=== PATIENT | male | born 1985 | race Caucasian/White ===

== ENCOUNTER 2016-11-03 23:56 | Emergency (ER) | payer BC ==
[2016-11-04] MEDS ORDERED: HYDROmorphone 2 MG/1 ML ONE (00:11)
[2016-11-04] MEDS ORDERED: ONDANSETRON 4 MG/2 ML VIAL ONE (00:11)
[2016-11-04] MEDS ORDERED: ONDANSETRON 4 MG/2 ML VIAL IVP ONE (00:13)
[2016-11-04] MEDS ORDERED: NORMAL SALINE 10 ML SYRINGE FLUSH IVP PRN (00:13)
[2016-11-04] MEDS ORDERED: Sodium Chloride 0.9% 1,000 ML PRIMARY IV ONE (00:13)
[2016-11-04] MEDS ORDERED: Famotidine Inj 20 MG in Normal Saline Flush 10 ML IVP ONE (00:13)
[2016-11-04] MEDS ORDERED: HYDROmorphone 2 MG/1 ML IVP ONE ×2 (00:13→01:10)
[2016-11-04 00:21] LABS: HEMATOCRIT 42.8 % (42.0-52.0); HEMOGLOBIN 14.4 g/dL (14.0-18.0); MEAN CORPUSCULAR HEMOGLOBIN 29.9 PG (27-31); MEAN CORPUSCULAR HGB CONC 33.6 g/dL (33-37); MEAN PLATELET VOLUME 9.9 FL (7.4-12.2); RDW COEFFICIENT OF VARIATION 13.6 % (11.5-14.5); RED BLOOD COUNT 4.82 10^6/uL (4.70-6.10); WHITE BLOOD COUNT 12.59 10^3/uL (4.8-10.8)
[2016-11-04 00:33] LABS: AMYLASE 66 U/L (30-110); ASPARTATE AMINO TRANSFERASE 22 IU/L (21-57); BILIRUBIN,TOTAL 0.7 mg/dL (0.3-1.2); BLOOD UREA NITROGEN 13 mg/dL (7-22); BUN/CREATININE RATIO 18.57 (6-20); CALCIUM 9.4 mg/dL (8.7-10.7); CHLORIDE 105 meq/L (98-112); CREATININE 0.7 mg/dL (0.70-1.50); EST GLOMERULAR FILTRATION > 60 (>60 ml/min/1.73m(2)); GLUCOSE 86 mg/dL (78-110); POTASSIUM 4.4 meq/L (3.8-5.2); SODIUM 137 meq/L (135-145); TOTAL PROTEIN 7.3 g/dL (6.1-8.0)
[2016-11-04 00:40] LABS: BAND NEUTROPHILS % 0 % (0-10); LYMPHOCYTES % (MANUAL) 28 % (10-50); MONOCYTES % (MANUAL) 5 % (0-12); NEUTROPHILS % (MANUAL) 38 % (50-80); PLATELET MORPHOLOGY COMMENT NORMAL MORPHOLOGY (NORM)
[2016-11-04 00:41] LABS: BASOPHILS % (MANUAL) 0 % (0-1); EOSINOPHILS % (MANUAL) 29 % (0-8)
--- NOTE | 2016-11-04 01:18 | DI ---
HISTORY: Generalized abdominal pain with nausea. COMPARISON: None available. TECHNIQUE: Helical CT scanning was performed from the lung bases, through the abdomen and pelvis, to the level of lesser trochanters following the administration of IV contrast material. MPR. Overall image quality is satisfactory. FINDINGS: LUNG BASES/LOWER HEART: Basilar atelectasis. No focal basilar consolidation, pleural effusion or pneumothorax. No pericardial effusion. ABDOMEN/PELVIS: LIVER: Homogeneous parenchymal attenuation. GALLBLADDER: Distended with bile. No calcified gallstones noted. No adjacent inflammatory change. PANCREAS: No adjacent inflammatory change. ADRENAL GLANDS: Maintain their triangular shape. SPLEEN: Normal enhancement pattern. KIDNEYS: Anatomic location. No hydronephrosis. GREAT VESSELS: Enhance unremarkably. FREE INTRAPERITONEAL FLUID: No large volume. VARIABLY DISTENDED BOWEL LOOPS: Nonobstructive bowel gas pattern. Moderate to large volume formed c olonic stool is present. APPENDIX: Not visualized. No inflammatory change in the right lower quadrant is noted. OSSEOUS STRUCTURES: No acute osseous abnormality. IMPRESSION: 1. No acute intra-abdominal or pelvic inflammatory process. 2. Moderate to large volume formed colonic stool.
[2016-11-04 03:39] VITALS: TEMP 97.6
[2016-11-04 03:41] VITALS: RESP 16
--- NOTE | 2016-11-04 05:03 | PDOC ---
Abdomen/Flank HPI - General Chief Complaint: Abdomen Pain Stated Complaint: ABD Date Seen by Provider: 11/04/16 Time Seen by Provider: 00:04 Source: POSITIVE: Patient, Spouse Exam Limitations: POSITIVE: No limitations Nurse's Notes Reviewed & Considered: Yes - History of Present Illness Initial Comments: The patient is a 31-year-old male. He states that around 6 AM he began to have some upper abdominal discomfort which waxes and wanes. His discomfort became worse in the past 3 hours. He had one episode of vomiting. No diarrhea, melena , hematochezia, hematemesis, dysuria, hematuria or fevers. No history of previous abdominal surgery. He is on no medications and has no allergies. Body Location Affected: REPORTS: Abdomen Timing: REPORTS: Intermittent Duration: 4-6 hours Severity: Moderate Quality: REPORTS: "Pain" Abdominal Pain Onset Location: REPORTS: RUQ, Epigastric Abdominal Pain Radiation: REPORTS: No radiation Context: REPORTS: None Modifying Factors: improves with: Nothing, Vomiting (Vomited 1) Associated Symptoms: REPORTS: Denies symptoms, Nausea, Vomiting (Times one) Similar Symptoms Previously: No Recent Care Received: REPORTS: Denies Any Prior Injuries Related to Current Complaint?: No - Patient Home Medications Home Medications: Home Medications NK [No Home Medications Reported] 11/04/16 - Patient Allergies Allergies/Adverse Reactions: Allergies Allergy/AdvReac Type Severity Reaction Status Date / Time No Known Drug Allergies Allergy Intermediate NOT Verified 11/04/16 00:03 APPLICABLE Past Medical History - heen HEENT History: Denies History Cardiovascular History: Denies History Respiratory History: Denies History Gastrointestinal History: Denies History Genitourinary History: Denies History Endocrine History: Denies History Musculoskeletal History: Back Pain, Other (please comment) Prosthesis or Implant: No Additional Musculoskeletal History: Hx of left hand repair without hardware. Hx of left knee scope. Neurological History: Denies History Blood Disorders: Denies History Psychiatric History: Denies History Cancer History: Denies History In Past Year Been Physically Harmed or Verbally Threatened: No History of MDRO: No Tobacco Use: Never Smoker Alcohol Use: Occasionally Substance Use Type: None Previous Surgical History: Yes Type / Date of Surgery: SCOPE LEFT KNEE. TENDON REPAIR LEFT THUMB Anesthesia Reactions: No Significant Family History: No pertinent family hx Past Medical History Reviewed: Reviewed - No Changes ROS - Limitations ROS Limitations: No Limitations Constitution: REPORTS: Denies Symptoms Cardiovascular: REPORTS: Denies Cardiac Symptoms Respiratory: REPORTS: Denies Resp Symptoms Neurological: REPORTS: Denies Neuro Symptoms Gastrointestinal: REPORTS: Abdominal Pain, Nausea, Vomitting (I) Endocrine: REPORTS: Denies Symptoms Musculoskeletal: REPORTS: Denies MS Symptoms Genitourinary: REPORTS: Denies Symptoms Eyes: REPORTS: Denies Symptoms ENT: REPORTS: Denies Symptoms Skin: REPORTS: Denies Skin Symptoms Lympathic: REPORTS: Denies Lympathic Symptoms Immunologic: POSITIVE: Denies Symptoms Psychiatric: POSITIVE: Denies Psych Symptoms Abdominal/Flank Pain PE - General Appearance General Appearance: POSITIVE: Alert, Cooperative, No Acute Distress, No Evidence of Trauma - HEENT HEENT: POSITIVE: Head Inspection Nml, Eyes Inspection Nml, Ears Inspection Nml, Nose Inspection Nml, Oral/Dental Inspect. Nml, Pharynx Inspect. Nml, PERRL, EOMI - Neck Neck: POSITIVE: Normal Inspection, No Apparent Injury - Respiratory Respiratory: POSITIVE: No Respiratory Distress, Breath Sounds Normal, Chest Non- Tender - Cardiovascular Cardiovascular: POSITIVE: Regular Rate and Rhythm, Heart Sounds Normal, Equal Pulses, Strong Pulses Peripheral Pulses: Radial (R): 2+, Radial (L): 2+ - Chest Chest: POSITIVE: Non Tender - Abdomen Abdomen: Soft: (All Quadrants), Normal Bowel Sounds: (All Quadrants), Denies Tenderness: (LLQ), (LUQ), (RLQ), No Splenomegaly: (All Quadrants), No Hepatomegaly: (All Quadrants), No Guarding: (All Quadrants), No Rebound: (All Quadrants), No Palpable Pulse: (All Quadrants), No Palpabale Mass: (All Quadrants), No Distention: (All Quadrants), No Rigidity: (All Quadrants), Tenderness Noted: (RUQ) Additional Abdominal Details: Abdominal examination shows bowel sounds to be active. Patient describes discomfort in the epigastrium and right upper quadrant, however direct palpation of this area does not really increase intensity of discomfort. - Back Back: POSITIVE: Normal Inspection. NEGATIVE: CVA Tenderness (R), CVA Tenderness (L) - Skin Skin: POSITIVE: Intact, Normal For Race, Warm, Dry, No Rash - Extremities Extremity: Non-Tender: (All Extremities), Normal ROM: (All Extremities), Normal Inspection: (All Extremities) - Neurological Neurological: POSITIVE: Oriented X3, bunch breaker Normal As Tested, Motor Normal, Sensation Normal, 5, 6 - Psychological Psychiatric: POSITIVE: Affect Appropriate, Mood Appropriate Images - Complete Complete: 1 - Area of described discomfort Abdomen Progress - Results Reviewed by me Xrays/CTs/US Reviewed by me: Yes Discussed with Radiologist: Yes Radiology Findings: CT scan abdomen and pelvis with IV contrast is read as normal by radiologist except for moderate to large amount of formed stool. Gallbladder is reportedly distended but there are no radiographic evidence of stones. Lab Results Reviewed: Yes Lab Results:: Laboratory Results 11/04/16 Range/Units 00:18 WBC 12.59 H (4.8-10.8) 10^3/uL RBC 4.82 (4.70-6.10) 10^6/uL Hgb 14.4 (14.0-18.0) g/dL Hct 42.8 (42.0-52.0) % MCV 88.8 (80-90) FL MCH 29.9 (27-31) PG MCHC 33.6 (33-37) g/dL RDW Std Deviation 43.6 (39-50) fL RDW Coeff of Laura 13.6 (11.5-14.5) % Plt Count 251 (140-350) 10*3/uL MPV 9.9 (7.4-12.2) FL Neutrophils % (Manual) 38 L (50-80) % Band Neutrophils % 0 (0-10) % Lymphocytes % (Manual) 28 (10-50) % Monocytes % (Manual) 5 (0-12) % Eosinophils % (Manual) 29 H (0-8) % Basophils % (Manual) 0 (0-1) % Metamyelocytes % Not Reportable Myelocytes % Not Reportable Promyelocytes % Not Reportable Blast Cells Not Reportable WBC Morphology Comment See comments (NORM) Plt Morphology Comment Normal morphology (NORM) RBC Morph Comment Normal morphology (NORM) Sodium 137 (135-145) meq/L Potassium 4.4 (3.8-5.2) meq/L Chloride 105 (98-112) meq/L Carbon Dioxide 22 L (23-33) meq/L Anion Gap 10 (5-20) BUN 13 (7-22) mg/dL Creatinine 0.7 (0.70-1.50) mg/dL Estimated GFR > 60 (>60 ml/min/1.73m(2)) BUN/Creatinine Ratio 18.57 (6-20) Glucose 86 (78-110) mg/dL Calculated Osmolality 282.0 (267-292) mOsm/kg Calcium 9.4 (8.7-10.7) mg/dL Total Bilirubin 0.7 (0.3-1.2) mg/dL AST 22 (21-57) IU/L ALT 30 (21-72) IU/L Alkaline Phosphatase 64 (38-126) IU/L Total Protein 7.3 (6.1-8.0) g/dL Albumin 4.3 (3.5-4.8) g/dL Globulin 2.9 (2.50-4.10) g/dL Albumin/Globulin Ratio 1.40 (1.3-2.0) mg/g Amylase 66 (30-110) U/L Lipase 101 (23-300) IU/L - Patient's Progress Pain Medication Addressed: POSITIVE: Yes (Dilaudid, total of 4 mg in ER) School/Work Release Addressed: POSITIVE: Yes Re-examine Time: 01:45 Re-Examine Comment: Pain essentially resolved and patient feels much better. Abdominal examination shows no pain on palpation and bowel sounds are active. Status: POSITIVE: Improved, Re-Examined - Consult Counseled: POSITIVE: Patient, Family, RE: Lab Results, RE: Radiology Results, RE : DX, RE: Need for F/U Patient Care Time - Estimated PCT Patient Care Time (In Minutes): 45 Vital Signs - Recent Vital Signs Vital Signs: Vital Signs (Last 8 hours) Temp Pulse Pulse Resp BP BP Pulse Ox 11/04/16 02:46 59 L 16 122/76 93 11/04/16 01:30 97.6 F 95 22 133/65 95 11/03/16 23:56 97.6 F 70 20 133/95 97 - VS Reviewed Vital Signs Reviewed: Yes Discharge Clinical Impression: Abdominal pain Discharge Disposition: Discharged to Home Condition: Good Patient Instructions Given at Discharge: Acute Abdominal Pain (ED) Additional Instructions: Your laboratory tests were normal. CT scan of your abdomen and pelvis was normal except for a moderate to large amount of formed stool in the colon. There is no signs of any appendicitis, gallstones, kidney stones, bowel perforations or any other serious intra-abdominal processes. I believe you're most likely had some intestinal colic, which is a painful condition in which the intestine contracts around some air in the bowel. I think this is resolved. I'm glad you are feeling better and back to normal. Please observe a clear liquid diet for 24-48 hours. Zantac [id number]. Return any time if symptoms recur or if condition worsens in any way. Otherwise, please follow- up with your primary care provider. Follow Up With: NONE,NONE [Primary Care Provider] - (Instructions as above. Return anytime if condition worsens. Follow-up with your primary care provider.)
== END 2016-11-04 02:46 | disposition home or self-care (01) ==
LOC: ER 23:56
DX: R10.13 Epigastric pain (principal); R11.2 Nausea with vomiting, unspecified; R10.11 Right upper quadrant pain
CPT/HCPCS: 74177; 80053; 82150; 83690; 85007; 96361; 96374; 96375; 96376; 99283; J1170; J2405

== ENCOUNTER 2016-11-04 04:04 | Observation (INO) | payer BC ==
[2016-11-04] MEDS ORDERED: Sodium Chloride 0.9% 1,000 ML PRIMARY IV ONE (04:26)
[2016-11-04] MEDS ORDERED: NORMAL SALINE 10 ML SYRINGE FLUSH IVP PRN ×2 (04:26→07:15)
[2016-11-04] MEDS ORDERED: HYDROmorphone 2 MG/1 ML IVP ONE (04:26)
[2016-11-04] MEDS ORDERED: ONDANSETRON 4 MG/2 ML VIAL IVP ONE (04:26)
[2016-11-04 05:51] LABS: BASOPHILS # (AUTO) 0.12 10*3/UL; BASOPHILS % (AUTO) 0.9 % (0-1); EOSINOPHILS # (AUTO) 4.08 10*3/UL; HEMATOCRIT 40.6 % (42.0-52.0); HEMOGLOBIN 13.6 g/dL (14.0-18.0); LYMPHOCYTES # (AUTO) 3.28 10*3/uL; MEAN CORPUSCULAR HEMOGLOBIN 29.9 PG (27-31); MEAN CORPUSCULAR HGB CONC 33.5 g/dL (33-37); MEAN PLATELET VOLUME 9.8 FL (7.4-12.2); MONOCYTES # (AUTO) 0.84 10*3/UL (0.3-0.8); MONOCYTES % (AUTO) 6.6 % (5-15); NEUTROPHILS # (AUTO) 4.41 10*3/UL; NEUTROPHILS % (AUTO) 34.6 % (50-80); RED BLOOD COUNT 4.55 10^6/uL (4.70-6.10)
[2016-11-04 05:52] LABS: BILIRUBIN,URINE NEGATIVE (NEG); CLARITY,URINE CLEAR (CLEAR); COLOR,URINE YELLOW; GLUCOSE, URINE (UA) NEGATIVE (NEG); NITRATE,URINE NEGATIVE (NEG); OCCULT BLOOD,URINE NEGATIVE (NEG); PH,URINE 6.5 (5.0-8.5); PROTEIN,URINE NEGATIVE (NEG); UROBILINOGEN,URINE 0.2 EU/dL (0.2)
[2016-11-04 05:53] LABS: URINE SAMPLE TYPE CLEAN CATCH URINE
[2016-11-04 06:02] LABS: BLOOD UREA NITROGEN 11 mg/dL (7-22); BUN/CREATININE RATIO 15.71 (6-20); CALCIUM 8.8 mg/dL (8.7-10.7); EST GLOMERULAR FILTRATION > 60 (>60 ml/min/1.73m(2)); LIPASE 120 IU/L (23-300); SERUM ALBUMIN 4.1 g/dL (3.5-4.8)
[2016-11-04 06:05] LABS: PLATELET MORPHOLOGY COMMENT NORMAL MORPHOLOGY (NORM); RBC MORPHOLOGY COMMENT NORMAL MORPHOLOGY (NORM); WBC MORPHOLOGY COMMENT SEE COMMENTS (NORM)
--- NOTE | 2016-11-04 06:46 | PDOC ---
Abdomen/Flank HPI - General Chief Complaint: Abdomen Pain Stated Complaint: ABD PAIN Date Seen by Provider: 11/04/16 Time Seen by Provider: 04:15 Source: POSITIVE: Patient, Spouse Exam Limitations: POSITIVE: No limitations Nurse's Notes Reviewed & Considered: Yes - History of Present Illness Initial Comments: The patient is a 31-year-old male who presents to the emergency room with chief complaint of upper abdominal pain. Patient was seen in the emergency room earlier this morning, at approximately midnight with similar complaints. Evaluation at that time included CT scan of the abdomen and pelvis which was read by the radiologist as normal. CBC at that time showed a mildly elevated white blood cell count of 12,300. CMP, amylase and lipase were all normal. Patient was medicated with Dilaudid 2 on that visit any seemed to improve considerably. He is was essentially pain-free when he left the emergency room at approximately 1:50 AM. Patient returns now at 4:15 AM with a recurrence of his pain. He rates the intensity of his pain is about a 9 on a scale of 10. He did vomit one time earlier today. No diarrhea. No melena, hematochezia, hematemesis, dysuria or hematuria. No known fevers. Body Location Affected: REPORTS: Abdomen Timing: REPORTS: Intermittent, Getting Worse Duration: <24 hours (Onset of abdominal discomfort around 6 AM yesterday, 22 hours ago.) Severity: Severe Quality: REPORTS: "Pain", Other (Waxing and waning) Abdominal Pain Onset Location: REPORTS: RUQ, Epigastric Abdominal Pain Radiation: REPORTS: No radiation Context: REPORTS: None Modifying Factors: improves with: Vomiting (Emesis 1) Associated Symptoms: REPORTS: Vomiting (Times one) Similar Symptoms Previously: Yes (seen in ER around midnight with similar complaints; see above) Recent Care Received: REPORTS: Recently Seen, Treated by MD Any Prior Injuries Related to Current Complaint?: No - Patient Home Medications Home Medications: Home Medications NK [No Home Medications Reported] 11/04/16 - Patient Allergies Allergies/Adverse Reactions: Allergies Allergy/AdvReac Type Severity Reaction Status Date / Time No Known Drug Allergies Allergy Intermediate NOT Verified 11/04/16 04:06 APPLICABLE Past Medical History - heen HEENT History: Denies History Cardiovascular History: Denies History Respiratory History: Denies History Gastrointestinal History: Denies History Genitourinary History: Denies History Endocrine History: Denies History Musculoskeletal History: Back Pain, Other (please comment) Prosthesis or Implant: No Additional Musculoskeletal History: Hx of left hand repair without hardware. Hx of left knee scope. Neurological History: Denies History Blood Disorders: Denies History Psychiatric History: Denies History Cancer History: Denies History In Past Year Been Physically Harmed or Verbally Threatened: No History of MDRO: No Tobacco Use: Never Smoker Alcohol Use: Occasionally Substance Use Type: None Previous Surgical History: Yes Type / Date of Surgery: SCOPE LEFT KNEE. TENDON REPAIR LEFT THUMB Anesthesia Reactions: No Significant Family History: No pertinent family hx Past Medical History Reviewed: Reviewed - No Changes ROS - Limitations ROS Limitations: No Limitations Constitution: REPORTS: Denies Symptoms Cardiovascular: REPORTS: Denies Cardiac Symptoms Respiratory: REPORTS: Denies Resp Symptoms Neurological: REPORTS: Denies Neuro Symptoms Gastrointestinal: REPORTS: Abdominal Pain, Vomitting (Times one) Endocrine: REPORTS: Denies Symptoms Musculoskeletal: REPORTS: Denies MS Symptoms Genitourinary: REPORTS: Denies Symptoms Eyes: REPORTS: Denies Symptoms ENT: REPORTS: Denies Symptoms Skin: REPORTS: Denies Skin Symptoms Lympathic: REPORTS: Denies Lympathic Symptoms Immunologic: POSITIVE: Denies Symptoms Psychiatric: POSITIVE: Denies Psych Symptoms Abdominal/Flank Pain PE - General Appearance General Appearance: POSITIVE: Alert, Cooperative, No Acute Distress, No Evidence of Trauma - HEENT HEENT: POSITIVE: Head Inspection Nml, Eyes Inspection Nml, Ears Inspection Nml, Nose Inspection Nml, Oral/Dental Inspect. Nml, Pharynx Inspect. Nml, PERRL, EOMI - Neck Neck: POSITIVE: Normal Inspection, No Apparent Injury - Respiratory Respiratory: POSITIVE: No Respiratory Distress, Breath Sounds Normal, Chest Non- Tender - Cardiovascular Cardiovascular: POSITIVE: Regular Rate and Rhythm, Heart Sounds Normal, Equal Pulses, Strong Pulses Peripheral Pulses: Radial (R): 2+, Radial (L): 2+ - Chest Chest: POSITIVE: Non Tender - Abdomen Abdomen: Soft: (All Quadrants), Normal Bowel Sounds: (All Quadrants), Denies Tenderness: (LLQ), (RLQ), No Splenomegaly: (All Quadrants), No Hepatomegaly: ( All Quadrants), No Guarding: (All Quadrants), No Rebound: (All Quadrants), No Palpable Pulse: (All Quadrants), No Palpabale Mass: (All Quadrants), No Distention: (All Quadrants), No Rigidity: (All Quadrants), Tenderness Noted: ( RUQ), (LUQ) Additional Abdominal Details: Abdominal examination shows bowel sounds to be present. Patient complains of pain on direct palpation over the upper abdomen, especially the epigastrium. No masses or organomegaly or rebound. - Back Back: POSITIVE: Normal Inspection - Skin Skin: POSITIVE: Intact, Normal For Race, Warm, Dry, No Rash - Extremities Extremity: Non-Tender: (All Extremities), Normal ROM: (All Extremities), Normal Inspection: (All Extremities) - Neurological Neurological: POSITIVE: Oriented X3, online services manager Normal As Tested, Motor Normal, Sensation Normal, 5, 6 - Psychological Psychiatric: POSITIVE: Affect Appropriate, Mood Appropriate Images - Complete Complete: 1 - Area of pain Abdomen Progress - Results Reviewed by me Xrays/CTs/US Reviewed by me: Yes Radiology Findings: Ultrasound of abdomen read as normal by licensed master social worker with no evidence of gallstones; radiologist reading pending Lab Results Reviewed: Yes (White blood cell count up to 12,740) Lab Results:: Laboratory Results 11/04/16 11/04/16 Range/Units 05:47 05:49 WBC 12.76 H (4.8-10.8) 10^3/uL RBC 4.55 L (4.70-6.10) 10^6/uL Hgb 13.6 L (14.0-18.0) g/dL Hct 40.6 L (42.0-52.0) % MCV 89.2 (80-90) FL MCH 29.9 (27-31) PG MCHC 33.5 (33-37) g/dL RDW Std Deviation 43.6 (39-50) fL RDW Coeff of Laura 13.7 (11.5-14.5) % Plt Count 250 (140-350) 10*3/uL MPV 9.8 (7.4-12.2) FL Immature Gran % (Auto) 0.2 (0-5) % Neut % (Auto) 34.6 L (50-80) % Lymph % (Auto) 25.7 (10-50) % [place]oshone % (Auto) 6.6 (5-15) % Eos % (Auto) 32.0 H (0-8) % Baso % (Auto) 0.9 (0-1) % Immature Gran # (Auto) 0.03 10*3/UL Neut # (Auto) 4.41 10*3/UL Lymph # (Auto) 3.28 10*3/uL [place] # (Auto) 0.84 H (0.3-0.8) 10*3/UL Eos # (Auto) 4.08 10*3/UL Baso # (Auto) 0.12 10*3/UL WBC Morphology Comment See comments (NORM) Plt Morphology Comment Normal morphology (NORM) RBC Morph Comment Normal morphology (NORM) Sodium 138 (135-145) meq/L Potassium 4.4 (3.8-5.2) meq/L Chloride 106 (98-112) meq/L Carbon Dioxide 23 (23-33) meq/L Anion Gap 9 (5-20) BUN 11 (7-22) mg/dL Creatinine 0.7 (0.70-1.50) mg/dL Estimated GFR > 60 (>60 ml/min/1.73m(2)) BUN/Creatinine Ratio 15.71 (6-20) Glucose 88 (78-110) mg/dL Calculated Osmolality 283.0 (267-292) mOsm/kg Calcium 8.8 (8.7-10.7) mg/dL Total Bilirubin 0.8 (0.3-1.2) mg/dL AST 21 (21-57) IU/L ALT 26 (21-72) IU/L Alkaline Phosphatase 54 (38-126) IU/L Total Protein 6.8 (6.1-8.0) g/dL Albumin 4.1 (3.5-4.8) g/dL Globulin 2.7 (2.50-4.10) g/dL Albumin/Globulin Ratio 1.50 (1.3-2.0) mg/g Amylase 60 (30-110) U/L Lipase 120 (23-300) IU/L Ur Collection Type Clean catch urine Urine Color Yellow Urine Clarity Clear (CLEAR) Urine pH 6.5 (5.0-8.5) Ur Specific Roy 1.015 (1.005-1.030) Urine Protein Negative (NEG) mg/dl Urine Glucose (UA) Negative (NEG) mg/dL Urine Ketones Negative (NEG) Urine Occult Blood Negative (NEG) Urine Nitrate Negative (NEG) Urine Bilirubin Negative (NEG) Urine Urobilinogen 0.2 (0.2) EU/dL Ur Leukocyte Esterase Negative (NEG) Ur Culture Indicated? Culture not set - Patient's Progress Pain Medication Addressed: POSITIVE: Yes (Patient given Dilaudid, 2 mg IV with considerable relief of pain) School/Work Release Addressed: POSITIVE: Not Applicable Re-examine Time: 06:30 Re-Examine Comment: Pain less after analgesia Status: POSITIVE: Improved, Re-Examined - Consult Consult (If Yes, Name of Consulting MD & Time Called): Yes (Dr. Begum, surgeon [id number]; Dr. Charles, hospitalist,[id number]) Consulting MD will see pt:: POSITIVE: [facility] [place] Admit Counseled: POSITIVE: Patient, Family, RE: Lab Results, RE: Radiology Results, RE : DX Patient Care Time - Estimated PCT Patient Care Time (In Minutes): 45 Vital Signs - Recent Vital Signs Vital Signs: Vital Signs (Last 8 hours) Temp Pulse Resp BP Pulse Ox 11/04/16 04:04 98.0 F 67 18 148/88 95 - VS Reviewed Vital Signs Reviewed: Yes Discharge Clinical Impression: Abdominal pain Discharge Disposition: Admit to Inpatient Condition: Stable Date Decision to Admit to Inpatient: 11/04/16 Time Decision to Admit to Inpatient: 06:00
[2016-11-04] MEDS ORDERED: Belladon/PHENobarbital Elixir 10 ML, Lidocaine Viscous Liquid 2% 15 ML, Mag Hyd/Al Hyd/... PO ONE ×3 (06:52)
[2016-11-04] MEDS ORDERED: MAGNESIUM 400 MG/5 ML - 30 ML (MILK OF MAGNESIA) PO ONE (07:15)
[2016-11-04] MEDS ORDERED: Sodium Chloride 0.9% 1,000 ML PRIMARY IV SCH (07:15)
[2016-11-04] MEDS ORDERED: LIDOCAINE W/ SODIUM BICARB 0.5 ML SYR SUBD PRN (07:15)
[2016-11-04] MEDS ORDERED: Fleet Enema w/Mineral Oil 133ml RECTAL ONE (07:15)
[2016-11-04] MEDS ORDERED: ONDANSETRON 4 MG/2 ML VIAL IVP PRN (07:15)
[2016-11-04] MEDS: KETOROLAC 15 MG/1 ML VIAL IVP PRN ×2 (07:43→14:14)
[2016-11-04] MEDS: ACETAMINOPHEN 325 MG TABLET PO PRN ×2 (07:44→14:14)
--- NOTE | 2016-11-04 07:53 | DI ---
HISTORY: Abdominal pain. COMPARISON: CT abdomen and pelvis earlier today (11/04/2016). TECHNIQUE: Multiple grayscale and color Doppler sonographic images were obtained through the abdomen without contrast. FINDINGS: The aorta is unremarkable. The liver is also unremarkable. The pancreas is normal throughout its visualized portions. The gall bladder is normal. The common bile duct is normal. The right kidney is also normal. The spleen and left kidney are normal. IMPRESSION: 1. Normal ultrasound of the abdomen. NOTE: The interpreting Radiologist was not present at the time of ultrasound interrogation.
[2016-11-04] MEDS ORDERED: POLYETHYLENE GLYCOL 3350 17 GM POWDER PO SCH (09:00)
[2016-11-04] MEDS ORDERED: Pantoprazole Inj 40 MG in Normal Saline Flush 10 ML IVP SCH (09:00)
--- NOTE | 2016-11-04 11:19 | DI ---
CT ABDOMEN SCAN WITHOUT IV CONTRAST, 11/04/2016 7:57 AM : Clinical History: Abdominal pain. Previous Exam: 11/03/2016. Scans are performed from the lower lung bases through the liver and kidneys without IV contrast. Sagi ttal and coronal reformatted images are generated. The lung bases are clear. The liver is normal. The gallbladder is opacified from the CT contrast admi nistered the night before. No filling defects are visualized within the gallbladder. There is no abno rmality of the spleen, pancreas, and adrenal glands. Both kidneys are normal in size, shape, position and contour. Residual contrast is present in the calyces of both kidneys from the scans performed th e night before. There is no hydronephrosis or hydroureter. No renal or ureteral calculi are present. There are no abnormal retrocrural or periaortic nodes. No ascites is present. READING: Normal CT abdomen scan. The gallbladder and kidneys to have residual contrast from the CT scans of th e abdomen and pelvis performed with IV contrast at 2342 hours on 11/03/2016. CT PELVIS SCAN WITHOUT IV CONTRAST, 11/04/2016 7:57 AM : Clinical History: See above. Previous Exam: 11/03/2016. Scans are performed from the inferior margin of the liver and kidneys to the symphysis pubis without IV contrast. There is no free fluid collection and there is no adenopathy. The appendix is normal. It was present on the previous exam as well and has not changed. The small bowel, terminal ileum, and ileocecal valv e are normal. The colon is also normal. There are no hernias. READING: Normal CT pelvis scan. The appendix is normal.
--- NOTE | 2016-11-04 12:23 | PDOC ---
History and Physical - History of Present Illness Date and Time of Service: 11/04/2016, 1220 Chief Complaint: Abdominal pain History of Present Illness: This very pleasant 31-year-old male with no prior past medical history who is accompanied by his mother here this morning. He has had a history of abdominal pain and that was his complaint when he presented today. His story starts about a week ago when he had some fairly severe diarrhea, and since that time he 's had sharp to dull intermittent abdominal pain mostly located in the epigastric and right upper quadrant region. He presented to the emergency room last night and also apparently had coffee-ground emesis. He's never had any symptoms like these before. He denies fever, continued vomiting, or diarrhea at this time. No fevers or chills. He states to me that Dilaudid seemed to help his pain but it made him feel very bad overall. I read the initial CT scan report and it stated that the appendix was not visualized and that the patient had moderate constipation. The over read reports are different than the initial CT scan report. I also ordered a rectal contrast CT scan study which was negative for appendicitis. An ultrasound of the gallbladder was negative. The patient denies any heartburn symptoms. He is ambulatory and walking with this pain, this had a couple of bowel movements and his pain is been subsiding to some degree although not completely relieved. He does state that the pain gets worse sometimes with food although it's fairly inconsistent, but his history was very consistent with pain coming and going. Past Medical History Medical History: None Surgical History: 1. Hand surgery. 2. Knee surgery Pertinent Family History: Significant for thyroid disease. He had a brother with a blood clot. Past Social History: Does not smoke or drink. . Has 4 children. 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 Tobacco Use: Never Smoker Substance Use Type: None Alcohol Use: None Medication / Allergies Home Medications: Home Medications Medication Instructions Recorded Confirmed Type NK [No Home Medications Reported] 11/04/16 11/04/16 History Allergies/Adverse Reactions: Allergies Allergy/AdvReac Type Severity Reaction Status Date / Time No Known Drug Allergies Allergy Intermediate NOT Verified 11/04/16 07:15 APPLICABLE Review of Systems - Review of Systems All Systems: Reviewed & No Additional Complaints Except as Stated (I did a 12 point review systems and it was negative other than that discussed in the history of present illness and that noted below.) - Gastrointestinal Gastrointestinal / Abdominal: REPORTS: Vomiting (Described as intermittent, with one episode yesterday.), Abdominal Pain Exam - Vitals Vital Signs: Vital Signs Temperature 97.3 F Temperature Source Oral Pulse Rate [Pulse Oximeter] 74 Pulse Rate 64 Respiratory Rate 16 Blood Pressure [Left Arm] 143/84 Blood Pressure 128/60 Pulse Ox 99 Oxygen Delivery Method Room Air Height 12 ft 7.6 in Weight 151 lb 9.6 oz - General General Appearance: POSITIVE: No Acute Distress, Cooperative - Head Head Exam: POSITIVE: Normal Inspection, Normocephalic, Atraumatic - Eye Eye Exam: POSITIVE: No Scleral Icterus - ENT ENT Exam: POSITIVE: Mucous Membranes Moist - Neck Neck Exam: POSITIVE: Normal Inspection, No Tenderness, No Thyromegaly - Respiratory Respiratory Exam: POSITIVE: Clear to Auscultation - Bilaterally, Breathing Non Labored, Normal to Percussion and Palpation - Cardiovascular Cardiovascular Exam: POSITIVE: RRR, No Murmur, No Clicks, No Gallops, No Rubs, PMI Non-Displaced, No JVD - GI/Abdominal GI/Abdominal Exam: POSITIVE: Normal Bowel Sounds, Non Tender, Non Distended, Soft Additional GI/Abdominal Exam Details: I could not elicit any tenderness with palpation on the abdomen. - Rectal Rectal Exam: POSITIVE: Deferred - External Exam: POSITIVE: Deferred Exam: POSITIVE: Deferred - Extremities Extremities Exam: POSITIVE: No Clubbing Present, No Edema Present, No Cyanosis Present - Back Back Exam: POSITIVE: No CVA Tenderness - Neurological Neurological Exam: POSITIVE: Alert, Oriented x 3, Normal Gait, No Facial Droop, Speech Intact / Clear, Moves All Extremities Equally - Psychiatric Psychiatric Exam: POSITIVE: Normal Affect, Normal Mood - Central Line Examination Central Line Present on Admission: No Results - Labs CBC and BMP: 11/04/16 05:49 11/04/16 05:49 Labs - Last 24 Hours: Laboratory Results 11/04/16 11/04/16 Range/Units 05:47 05:49 WBC 12.76 H (4.8-10.8) 10^3/uL RBC 4.55 L (4.70-6.10) 10^6/uL Hgb 13.6 L (14.0-18.0) g/dL Hct 40.6 L (42.0-52.0) % MCV 89.2 (80-90) FL MCH 29.9 (27-31) PG MCHC 33.5 (33-37) g/dL RDW Std Deviation 43.6 (39-50) fL RDW Coeff of Laura 13.7 (11.5-14.5) % Plt Count 250 (140-350) 10*3/uL MPV 9.8 (7.4-12.2) FL Immature Gran % (Auto) 0.2 (0-5) % Neut % (Auto) 34.6 L (50-80) % Lymph % (Auto) 25.7 (10-50) % Wolfe % (Auto) 6.6 (5-15) % Eos % (Auto) 32.0 H (0-8) % Baso % (Auto) 0.9 (0-1) % Immature Gran # (Auto) 0.03 10*3/UL Neut # (Auto) 4.41 10*3/UL Lymph # (Auto) 3.28 10*3/uL Wolfe # (Auto) 0.84 H (0.3-0.8) 10*3/UL Eos # (Auto) 4.08 10*3/UL Baso # (Auto) 0.12 10*3/UL WBC Morphology Comment See comments (NORM) Plt Morphology Comment Normal morphology (NORM) RBC Morph Comment Normal morphology (NORM) Sodium 138 (135-145) meq/L Potassium 4.4 (3.8-5.2) meq/L Chloride 106 (98-112) meq/L Carbon Dioxide 23 (23-33) meq/L Anion Gap 9 (5-20) BUN 11 (7-22) mg/dL Creatinine 0.7 (0.70-1.50) mg/dL Estimated GFR > 60 (>60 ml/min/1.73m(2)) BUN/Creatinine Ratio 15.71 (6-20) Glucose 88 (78-110) mg/dL Calculated Osmolality 283.0 (267-292) mOsm/kg Calcium 8.8 (8.7-10.7) mg/dL Total Bilirubin 0.8 (0.3-1.2) mg/dL AST 21 (21-57) IU/L ALT 26 (21-72) IU/L Alkaline Phosphatase 54 (38-126) IU/L Total Protein 6.8 (6.1-8.0) g/dL Albumin 4.1 (3.5-4.8) g/dL Globulin 2.7 (2.50-4.10) g/dL Albumin/Globulin Ratio 1.50 (1.3-2.0) mg/g Amylase 60 (30-110) U/L Lipase 120 (23-300) IU/L Ur Collection Type Clean catch urine Urine Color Yellow Urine Clarity Clear (CLEAR) Urine pH 6.5 (5.0-8.5) Ur Specific [place] 1.015 (1.005-1.030) Urine Protein Negative (NEG) mg/dl Urine Glucose (UA) Negative (NEG) mg/dL Urine Ketones Negative (NEG) Urine Occult Blood Negative (NEG) Urine Nitrate Negative (NEG) Urine Bilirubin Negative (NEG) Urine Urobilinogen 0.2 (0.2) EU/dL Ur Leukocyte Esterase Negative (NEG) Ur Culture Indicated? Culture not set - Imaging Status: Report Reviewed by Me (CT scans of the abdomen and pelvis are negative for appendicitis, pancreatitis, or other acute pathologies. Ultrasound of the gallbladder is negative.) Assessment and Plan - Patient Problems (1) Abdominal pain Current Visit: Yes Status: Acute - Assessment / Plan Additional Assessment/Plan Details: Admit patient for observation. IV fluids. Protonix IV. Could certainly be a gastritis/ulcer, but no red flag symptoms of needing a scope in an emergency basis. He is not actively exsanguinating. Continue proton pump inhibitor and possibly start H2 esha. Patient's pain description was of a somewhat colicky nature, which could be suggestive of biliary dyskinesia. Get a HIDA scan, which I probably will not be able to get in until tomorrow morning in discussion with nuclear medicine. We will have surgery consult on the patient as well and I discussed with Dr. Begum. Question need for EGD.
[2016-11-04 12:28] VITALS: TEMP 97.6
[2016-11-04] MEDS ORDERED: Lactated Ringers 1,000 ML PRIMARY IV ONE (14:41)
--- NOTE | 2016-11-04 14:56 | CONSULT ---
Consult Note - Consult Consult Date: 11/04/16 Reason for Consult: PreOp Consulation : General Surgery Requesting Physician: Dr. Araceli Pool Primary Care Provider: NONE NONE - History of Present Illness History of Present Illness: Patient is a 31-year-old male who reports problem started about a week ago. He had a bout of severe diarrhea. He has had normal bowel movements since then. He reports 2-3 a day. He has had some nagging abdominal pain since the diarrhea. Yesterday morning he got up and ate something. He had increased pain. He doesn't remember what he ate. He apparently went to work. He ate some pizza at lunch time and developed progressive and severe epigastric abdominal pain. He had nausea. He had self-induced vomiting which he describes as coffee ground. The pain is in the epigastrium and is described as burning to sharp. He does not have heartburn. It seems to be worse with food. He is not taking any aspirin or anti-inflammatories. He has never had a pain like this before. Patient presented to the emergency room last evening. Workup was labs and a CT scan of his abdomen and pelvis. He got some Dilaudid in the pain largely resolved. CT scan showed some constipation and he was started on some liquid Colace. Labs were remarkable only for mild elevation of his white count 12, 300. He was sent home. The pain recurred and he presented back to the emergency room. Comprehensive lab work was again unremarkable with the exception of a slight elevation of his white count at 12,700. Ultrasound of his abdomen was done and was unremarkable. He was admitted to the hospitalist service. CT was done with rectal contrast today and was normal including his appendix which was not visualized on the first CT. He had a large bowel movement after the rectal contrast. He reports that right after the CAT scan his pain was at its worst. He is much more comfortable now. He has not had any pain medicine since early this morning. I am asked to see him in consultation. Review of Systems - Gastrointestinal Gastrointestinal / Abdominal: REPORTS: Nausea, Vomiting, Diarrhea, Abdominal Pain, See HPI Past Medical History Medical History: None Surgical History: 1. Left thumb surgery. 2. Left knee surgery Pertinent Family History: Significant for thyroid disease. He had a brother with a blood clot. Past Social History: Does not smoke or drink. . Has 4 children. 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 Tobacco Use: Never Smoker Do you dip or chew tobacco: Yes (1 can a week.) Substance Use Type: None Alcohol Use: Occasionally (1-2 beers 3-5 days a week.) Medication / Allergies Home Medications: Home Medications Medication Instructions Recorded Confirmed Type NK [No Home Medications Reported] 11/04/16 11/04/16 History Allergies/Adverse Reactions: Allergies Allergy/AdvReac Type Severity Reaction Status Date / Time No Known Drug Allergies Allergy Intermediate NOT Verified 11/04/16 07:15 APPLICABLE Exam - Vitals Vital Signs: Vital Signs Temperature 97.6 F Temperature Source Temporal Artery Scan Pulse Rate [Pulse Oximeter] 53 Pulse Rate 64 Respiratory Rate 16 Blood Pressure [Left Arm] 114/72 Blood Pressure 128/60 Pulse Ox 97 Oxygen Delivery Method Room Air Height 12 ft 7.6 in Weight 68.765 kg - General General Appearance: POSITIVE: No Acute Distress, Cooperative - Respiratory Respiratory Exam: POSITIVE: Clear to Auscultation - Bilaterally, Breathing Non Labored - Cardiovascular Cardiovascular Exam: POSITIVE: RRR, No Murmur - GI/Abdominal GI/Abdominal Exam: POSITIVE: Normal Bowel Sounds, Non Distended, Soft, No Masses Additional GI/Abdominal Exam Details: Epigastric tenderness. Lower abdominal exam is benign. Bowel tones preserved. - Neurological Neurological Exam: POSITIVE: Alert, Oriented x 3 - Psychiatric Psychiatric Exam: POSITIVE: Normal Affect, Normal Mood Results - Labs CBC and BMP: 11/04/16 05:49 11/04/16 05:49 - Imaging Status: Image Reviewed by Me, Report Reviewed by Me Assessment and Plan - Patient Problems (1) Epigastric abdominal pain of unknown etiology Current Visit: Yes Status: Acute Priority: High Diagnosis Date: 11/03/16 Comment: Etiology unclear. With his epigastric pain and hematemesis I think it is important to proceed with an upper endoscopy. We will plan random biopsies. If nothing is found would recommend a HIDA scan. If that is all negative have to consider a colonoscopy but no gross abnormalities were seen on a CT with rectal contrast. Also discussed with the patient and his the remote possibility of a laparoscopy but that will be down the road pending other tests as outlined. Proceed with esophagogastroduodenoscopy with biopsy. The procedure has been discussed with the patient in complete yet simple terms including benefits, risks, and alternatives. All questions have been answered. Informed consent has been obtained.
[2016-11-04 16:05] VITALS: RESP 12
--- NOTE | 2016-11-04 16:18 | GEN.OPNOTE ---
EGD Operative Note Surgery Date: 11/04/16 Preoperative Diagnosis: Epigastric pain. Coffee ground emesis. Postoperative Diagnosis: Same. Stomach visually normal. Procedure: Esophagogastroduodenoscopy with biopsy. Surgeon: Eliceo Begum MD Anesthesia Provider: Radha Ann CRNA Anesthesia Type: MAC Indications: See preoperative diagnosis and consult note. Findings: Esophagus: [Normal] GE Junction : [Normal] Fundus : [Normal] Body : [Normal] Prepyloric : [Normal] Small Intestine : [Normal] A lubricated flexible upper endoscope was inserted and passed through the esophagus and stomach into the duodenum. The duodenum and duodenal bulb were unremarkable. Pyloric channel was patent. Entire gastric mucosa was unremarkable without inflammation or ulcers. Because of the patient's presenting complaints I did antral biopsies for H. pylori and underlying inflammation. Hemostasis was assured. Air was aspirated. The scope was withdrawn into the distal esophagus. Biopsies were taken at and above the Z line. Hemostasis was assured. The scope was withdrawn through the remainder of a normal-appearing esophagus and brought to the hypopharynx under suction completing the procedure. Patient tolerated the procedure well without complication. He will be taken back to the medical surgical floor in stable condition. HIDA scan plan for the morning. Pending course consider colonoscopy and/or laparoscopy. Estimated Blood Loss (mL): 2 Fluids: 1000 mL of crystalloid. Pathology: Specimens to pathology included antral and distal esophageal biopsies. Complications: None.
[2016-11-04] MEDS ORDERED: NICOTINE 4 MG GUM BUCCAL PRN (16:51)
--- NOTE | 2016-11-04 18:54 | DCSUMMARY ---
Hospitalization Summary Admit Date: 11/04/16 Discharge Date: 11/04/16 Primary Diagnosis:: abdominal pain secondary to constipation Hospital Course: This very pleasant 31-year-old male who presented with abdominal pain of about a week duration with intermittent symptoms of sharp quality and dull quality pain. This was largely located in the epigastric and right upper quadrant and sometimes right lower quadrant and right flank area. CT scan showed on initial read, increased stool consistent with constipation, and the appendix was not visualized. We repeated the CT scan with rectal contrast and it was negative for appendicitis. Gallbladder ultrasound was negative. I consulted surgery and an EGD was done, please see Dr. Begum's report. We did recommend a HIDA scan to the patient but he would like to see whether or not his pain returns. He states at this time that his pain is very well controlled , has completely resolved, and he said bowel movements, including formed bowel movements through the day that he states made him feel much better and his pain is completely resolved. I did write him a prescription for a HIDA scan should his pain return. If I had a scan should be done, would like to do it with about a 48 hour absence of narcotics. No completes of chest pain or shortness breath. Assessment and Plan: 1. As per discharge assessments noted 2. Disposition: Patient is discharged home. 3. Condition on discharge, stable and improved. 4. Diet: Clear liquids today then resume diet tomorrow 5. Activities: resume normal activities 6. Follow-Up: 1. Visit surgery in 2 weeks if pain persists 2. 7. Medications at the Time of Discharge: Home Medications Medication Instructions Recorded Confirmed Type NK [No Home Medications Reported] 11/04/16 11/04/16 History 8. Time, care, counseling and coordination of care for this discharge is greater than 30 minutes. Exam - Vitals Vital Signs: Vital Signs Temperature 97.6 F Temperature Source Temporal Artery Scan Pulse Rate [Pulse Oximeter] 53 Pulse Rate 55 Respiratory Rate 12 Blood Pressure [Left Arm] 114/72 Blood Pressure 82/39 Pulse Ox 97 Oxygen Flow Rate 4 Oxygen Delivery Method Room Air Height 12 ft 7.6 in Weight 151 lb 9.6 oz Review exam details from earlier note. - Extremities Extremities Exam: POSITIVE: No Clubbing Present, No Edema Present, No Cyanosis Present - Neurological Neurological Exam: POSITIVE: Alert, Oriented x 3, Normal Gait, Speech Intact / Clear, Moves All Extremities Equally Data Perinent Studies: Laboratory Results 11/04/16 11/04/16 Range/Units 05:47 05:49 WBC 12.76 H (4.8-10.8) 10^3/uL RBC 4.55 L (4.70-6.10) 10^6/uL Hgb 13.6 L (14.0-18.0) g/dL Hct 40.6 L (42.0-52.0) % MCV 89.2 (80-90) FL MCH 29.9 (27-31) PG MCHC 33.5 (33-37) g/dL RDW Std Deviation 43.6 (39-50) fL RDW Coeff of Laura 13.7 (11.5-14.5) % Plt Count 250 (140-350) 10*3/uL MPV 9.8 (7.4-12.2) FL Immature Gran % (Auto) 0.2 (0-5) % Neut % (Auto) 34.6 L (50-80) % Lymph % (Auto) 25.7 (10-50) % Yell % (Auto) 6.6 (5-15) % Eos % (Auto) 32.0 H (0-8) % Baso % (Auto) 0.9 (0-1) % Immature Gran # (Auto) 0.03 10*3/UL Neut # (Auto) 4.41 10*3/UL Lymph # (Auto) 3.28 10*3/uL Yell # (Auto) 0.84 H (0.3-0.8) 10*3/UL Eos # (Auto) 4.08 10*3/UL Baso # (Auto) 0.12 10*3/UL WBC Morphology Comment See comments (NORM) Plt Morphology Comment Normal morphology (NORM) RBC Morph Comment Normal morphology (NORM) Sodium 138 (135-145) meq/L Potassium 4.4 (3.8-5.2) meq/L Chloride 106 (98-112) meq/L Carbon Dioxide 23 (23-33) meq/L Anion Gap 9 (5-20) BUN 11 (7-22) mg/dL Creatinine 0.7 (0.70-1.50) mg/dL Estimated GFR > 60 (>60 ml/min/1.73m(2)) BUN/Creatinine Ratio 15.71 (6-20) Glucose 88 (78-110) mg/dL Calculated Osmolality 283.0 (267-292) mOsm/kg Calcium 8.8 (8.7-10.7) mg/dL Total Bilirubin 0.8 (0.3-1.2) mg/dL AST 21 (21-57) IU/L ALT 26 (21-72) IU/L Alkaline Phosphatase 54 (38-126) IU/L Total Protein 6.8 (6.1-8.0) g/dL Albumin 4.1 (3.5-4.8) g/dL Globulin 2.7 (2.50-4.10) g/dL Albumin/Globulin Ratio 1.50 (1.3-2.0) mg/g Amylase 60 (30-110) U/L Lipase 120 (23-300) IU/L Ur Collection Type Clean catch urine Urine Color Yellow Urine Clarity Clear (CLEAR) Urine pH 6.5 (5.0-8.5) Ur Specific [place] 1.015 (1.005-1.030) Urine Protein Negative (NEG) mg/dl Urine Glucose (UA) Negative (NEG) mg/dL Urine Ketones Negative (NEG) Urine Occult Blood Negative (NEG) Urine Nitrate Negative (NEG) Urine Bilirubin Negative (NEG) Urine Urobilinogen 0.2 (0.2) EU/dL Ur Leukocyte Esterase Negative (NEG) Ur Culture Indicated? Culture not set Patient Problems - Patient Problem List (1) Abdominal pain Current Visit: Yes Status: Acute
== END 2016-11-04 19:00 | disposition home or self-care (01) ==
LOC: ER 04:04 → MED/SURG 06:43 → OPS 14:53 → MED/SURG 16:03
PROVIDERS: ADMIT Family Medicine; ATTEND Family Medicine
DX: K59.00 Constipation, unspecified (principal); R11.10 Vomiting, unspecified; R10.13 Epigastric pain
CPT/HCPCS: 43239; 74176; 76700; 80053; 81003; 82150; 83690; 85025; 96361; 96374; 96375; 99284 ×2; J2704; J1170; J1885; J2405; J3490; J7030; J7120

== ENCOUNTER 2016-11-15 10:08 | Observation (INO) | payer BC ==
[~2016-11-15 10:08] MED LIST: LIDOCAINE W/ SODIUM BICARB 0.5 ML SYR ONE; Lactated Ringers 1,000 ML PRIMARY IV ONE
--- NOTE | 2016-11-15 11:41 | GEN.OPNOTE ---
Colonoscopy Procedure Note Surgery Date: 11/15/16 Preoperative Diagnosis: Epigastric abdominal pain. Change in bowel habits. Decreased stool caliber. Postoperative Diagnosis: Same. Procedure: Complete colonoscopy. Surgeon: Eliceo Begum MD Anesthesia Provider: Radha Ann CRNA Anesthesia Type: MAC Indications: See preoperative diagnosis. Findings: Prep : [Excellent] Cecum : [Normal] Ascending : [Normal] Transverse : [Normal] Sigmoid : [Normal] Rectum : [Normal] Digital Rectal Exam : [Normal] Terminal ileum:[Normal] A lubricated flexible colonoscope was inserted and passed to the blind end of the cecum. The blind end of the cecum and ileocecal valve were clearly seen. The terminal ileum was intubated and was visually normal. Air was aspirated as the scope was withdrawn. The entire colonoscopy was normal without polyp, tumor , neoplastic mass, infectious or inflammatory process identified. The scope was withdrawn completing the procedure. Patient tolerated the procedure well without complication. He was taken to outpatient surgery in stable condition. Follow-up will be in my office on an as-needed basis. I recommended he get a HIDA scan as ordered and follow-up with me after that. If the HIDA is normal consider Bentyl as his abdominal pain seems related somewhat to bowel movements. May be irritable bowel syndrome.
[2016-11-15] MEDS ORDERED: DICYCLOMINE 20 MG TABLET PO ONE (12:55)
[2016-11-15] MEDS: KETOROLAC 30 MG/1 ML VIAL IVP ONE ×2 (12:58→15:33)
[2016-11-15] MEDS: DICYCLOMINE 20 MG TABLET PO ONE ×2 (13:00→15:32)
[2016-11-15] MEDS: HYDROmorphone 2 MG/1 ML IVP ONE ×2 (13:35→15:32)
[2016-11-15] MEDS ORDERED: ONDANSETRON 4 MG/2 ML VIAL IVP PRN (15:23)
[2016-11-15] MEDS ORDERED: NORMAL SALINE 10 ML SYRINGE FLUSH IVP PRN (15:23)
[2016-11-15] MEDS ORDERED: LIDOCAINE W/ SODIUM BICARB 0.5 ML SYR SUBD PRN (15:23)
[2016-11-15] MEDS: HYDROmorphone 2 MG/1 ML IVP PRN ×7 (15:34→23:51)
[2016-11-15] MEDS ORDERED: Lactated Ringers 1,000 ML PRIMARY IV ONE (15:36)
[2016-11-15] MEDS: NICOTINE 4 MG GUM BUCCAL PRN ×2 (16:38→21:20)
[2016-11-15] MEDS: Pantoprazole Inj 40 MG in Normal Saline Flush 10 ML IVP SCH (16:39)
[2016-11-15] MEDS ORDERED: DICYCLOMINE IM ONE ×2 (16:57→22:40)
[2016-11-15] MEDS ORDERED: DICYCLOMINE 20 MG TABLET PO SCH (17:00)
[2016-11-15] MEDS: DICYCLOMINE IM SCH ×2 (17:13→22:45)
[2016-11-15] MEDS ORDERED: D5-1/2NS + 20mEq KCL 1,000 ML PRIMARY IV SCH (20:00)
[2016-11-16] MEDS: HYDROmorphone 2 MG/1 ML IVP PRN ×3 (02:56→07:44)
[2016-11-16] MEDS ORDERED: DICYCLOMINE IM ONE ×2 (04:46→12:31)
[2016-11-16] MEDS: DICYCLOMINE IM SCH ×2 (05:02→12:37)
[2016-11-16 05:03] LABS: BASOPHILS # (AUTO) 0.05 10*3/UL; BASOPHILS % (AUTO) 0.5 % (0-1); EOSINOPHILS # (AUTO) 0.63 10*3/UL; EOSINOPHILS % (AUTO) 6.6 % (0-8); HEMATOCRIT 41.5 % (42.0-52.0); HEMOGLOBIN 13.8 g/dL (14.0-18.0); LYMPHOCYTES # (AUTO) 2.57 10*3/uL; MEAN CORPUSCULAR HEMOGLOBIN 29.6 PG (27-31); MEAN CORPUSCULAR HGB CONC 33.3 g/dL (33-37); MEAN CORPUSCULAR VOLUME 89.1 FL (80-90); MEAN PLATELET VOLUME 9.6 FL (7.4-12.2); MONOCYTES # (AUTO) 0.67 10*3/UL (0.3-0.8); NEUTROPHILS # (AUTO) 5.58 10*3/UL; NEUTROPHILS % (AUTO) 58.7 % (50-80); RED BLOOD COUNT 4.66 10^6/uL (4.70-6.10)
[2016-11-16 05:05] LABS: PLATELET MORPHOLOGY COMMENT NORMAL MORPHOLOGY (NORM); RBC MORPHOLOGY COMMENT NORMAL MORPHOLOGY (NORM); WBC MORPHOLOGY COMMENT NORMAL MORPHOLOGY (NORM)
[2016-11-16 05:11] LABS: BLOOD UREA NITROGEN 9 mg/dL (7-22); BUN/CREATININE RATIO 12.85 (6-20); CALCIUM 8.6 mg/dL (8.7-10.7); EST GLOMERULAR FILTRATION > 60 (>60 ml/min/1.73m(2))
[2016-11-16] MEDS: NICOTINE 4 MG GUM BUCCAL PRN ×3 (05:14→12:39)
--- NOTE | 2016-11-16 09:03 | DI ---
HISTORY: Abdominal pain post colonoscopy. FINDINGS: Examination reveals the bowel gas pattern to be unremarkable, except for some air in porti ons of the colon and ileum. There is no definite evidence of bowel obstruction. There is no evidence of free air in the peritoneal cavity. No abnormal calcifications are noted. IMPRESSION: 1. No evidence of acute bowel obstruction. Clinical correlation is requested.
[2016-11-16 09:16] VITALS: RESP 18; TEMP 97.6
[2016-11-16] MEDS: Pantoprazole Inj 40 MG in Normal Saline Flush 10 ML IVP SCH (09:24)
--- NOTE | 2016-11-16 10:51 | DI ---
HISTORY: Abdominal pain radiating down into the right lower quadrant. PREVIOUS EXAM: November 04, 2016 TECHNIQUE: Multiple helically acquired CT images are obtained through the abdomen and pelvis followi ng the administration of Isovue contrast. FINDINGS: The lungs are clear. There are multiple stable enlarged mesenteric lymph nodes which have not changed significantly since the prior exam. The appendix is retrocecal, but is within normal limits with a normal caliber. The small bowel loops and colon appear unremarkable although evaluated in the colon is limited due to partial decompression and stool. There is no free air nor free fluid. The liver, gallbladder, spleen, pancreas and adrenals are unrema rkable. The lung bases are clear. IMPRESSION: 1. Diffuse mesenteric lymphadenopathy essentially unchanged from prior exam. No other findings.
--- NOTE | 2016-11-16 13:42 | DCSUMMARY ---
Discharge Summary Admit Date: 11/15/16 Discharge Date: 11/16/16 Admitting Diagnosis: abdominal pain post-colonoscopy. Discharge Diagnosis: Abdominal pain post-colonoscopy. Primary Surgery and Date: Complete colonoscopy, 11/15/2016 Hospital Course: Patient is a 31-year-old male who underwent colonoscopy yesterday. He had severe gas pains postoperative. Postoperative x-ray showed no evidence of free air. We could not get him comfortable. He was admitted for pain medicines and overnight observation. His pain is improved a little bit after several hours but he continued to use pain medication all night. His last dose was approximately 745 this morning. He reports he has a pain level at this time of 6 out of 10. He is laying comfortably in bed looks more like 2 or 3 out of 10. Because of his ongoing pain an x-ray was ordered this morning. Flat and upright abdominal x-rays were unremarkable. As he was still needing pain medicines a CT scan was done and there was no evidence of intra-abdominal pathology. His lab work this morning is normal. He is afebrile and his vital signs are stable. He had a bowel movement after the oral contrast for the CT scan. The nursing staff said it was pink and possibly had a little blood in it. He reports there was chunks of stool in it which is unusual as he has had no solid foods since the day prior to the colonoscopy. Patient is tolerating both clear and full liquids. He wants to go home. He is ready to be discharged home for outpatient follow-up. The pain he had postoperatively was the same as the pain he was admitted for in the past. The etiology of his abdominal pain is unclear. He has now had 3 CAT scans which have all been unremarkable. He has had an upper and lower endoscopy. Lower endoscopy was unremarkable. Upper endoscopy showed changes of reflux or eosinophilic esophagitis. Patient has been started on Protonix. Ultrasound of his gallbladder was unremarkable. Multiple lab tests have been unremarkable. A HIDA was recommended but it has not been done yet. The plan will be to discharge the patient home on Motrin, Bentyl, and Protonix. I will see him later this week in the office. After he has been off the narcotics for at least 2 or 3 days we'll order a HIDA scan. If that is normal I think the next step will be referral to gastroenterology. With him having stool in his colon on the CAT scan this morning and passing stool. He has had no solid food I think a small bowel study may also be indicated. As we've discussed before lastly would be a diagnostic laparoscopy. He understands all of the above. Exam - Vitals Vital Signs: Vital Signs Temperature 97.6 F Temperature Source Temporal Artery Scan Pulse Rate [Pulse Oximeter] 59 Pulse Rate 67 Respiratory Rate 18 Blood Pressure [Left Arm] 132/86 Blood Pressure 138/89 Pulse Ox 100 Oxygen Flow Rate 2 Oxygen Delivery Method Room Air Height 5 ft 11 in Weight 69.218 kg - General General Appearance: POSITIVE: No Acute Distress, Cooperative - Respiratory Respiratory Exam: POSITIVE: Clear to Auscultation - Bilaterally, Breathing Non Labored - Cardiovascular Cardiovascular Exam: POSITIVE: RRR, No Murmur - GI/Abdominal GI/Abdominal Exam: POSITIVE: Normal Bowel Sounds, Non Tender, Non Distended, Soft - Neurological Neurological Exam: POSITIVE: Alert, Oriented x 3 - Psychiatric Psychiatric Exam: POSITIVE: Normal Affect, Normal Mood Data Perinent Studies: Flat and upright abdominal x-ray 2, normal. CT scan abdomen and pelvis with oral and IV contrast, normal. Lab work normal. Procedures: Colonoscopy, normal. Patient Problems - Patient Problem List (1) Epigastric abdominal pain of unknown etiology Current Visit: No Status: Acute Diagnosis Date: 11/03/16 Priority: High Comment: Please see history of present illness for full discussion. Patient is stable at this time and may be discharged home for outpatient follow-up. Plans as per history of present illness.
--- NOTE | 2016-11-18 08:49 | DI ---
XR ABDOMEN KUB UPRIGHT,11/15/2016 12:00 PM: Clinical History: Abdominal pain status post colonoscopy Previous Exam: None at this facility. Findings: 2 views of the abdomen are obtained, and demonstrate a large amount of air throughout the colon as we ll as throughout the small bowel. There is no subdiaphragmatic free air. Lung bases are clear. Skeletal structures are unremarkable. There are no pathologic calcifications. Impression: Large amount of air throughout the entire colon and within the small bowel. These findings are normal status post colonoscopy.
== END 2016-11-16 14:09 | disposition home or self-care (01) ==
LOC: SDSC 10:08 → MED/SURG 15:14
PROVIDERS: ADMIT Surgery; ATTEND Surgery
DX: R10.13 Epigastric pain (principal); R19.4 Change in bowel habit; G89.18 Other acute postprocedural pain
CPT/HCPCS: 36415; 45378; 74020 ×2; 74177; 80048; 85025; 94761; 96374; 96375; J2704; J0500; J1170; J3490; J7120